=== PATIENT | female | born 1950 | race Caucasian/White ===

== ENCOUNTER 2017-01-08 09:27 | Day surgery (SDC) | payer MEDICARE, OTHER ==
[~2017-01-08] VITALS: Ht 166.4 cm; Wt 74.9 kg
[2017-01-08] VITALS (46 sets, daily range): BP systolic 86–149; BP diastolic 48–81; PULSE 43–70; RESP 10–18; TEMP 96.2–98.1; O2SAT 87–100; Ht 166.4 cm; Wt 74.9 kg
[~2017-01-08 09:27] MED LIST: ATOR10TA64 PO; CEFAZOLIN 1 GRAM INJECTION IV ONE; LIDOCAINE 1% (10mg/ml) 2ml SDV INJ ONE; LR 1,000 ML IV PRN; LR 1,000 ML IV SCH; RANI150T7 PO
--- OUTSIDE RECORDS SUMMARY | 2017-01-08 09:32 | XMS REPORT ---
Author Author [facility]. Organization [facility] Address [address] [place] [address] Phone [phone] Summary purpose CCDA Sent to [facility] Chief Complaint and Reason for Visit No authorized Reason for Visit (Admitting Diagnosis) is available for this visit. Problem list No authorized problems tracked for continuity of care are available for this visit. Encounters No authorized problems tracked for encounter diagnoses are available for this visit. Medications No medications recorded for this patient visit Allergies, adverse reactions, alerts No allergy information is available for this patient. Immunizations No immunizations recorded for this patient visit Relevant diagnostic tests and/or laboratory data No authorized results are available for this patient visit History of procedures Procedure Code Code Type Description Date Performed Performing Physician 49283 CPT-4 MARCELA, DNA, DIR PROBE 11-01-2015 BROWN ESCAMILLA 41007 CPT-4 LENNON VAG, DNA, DIR PROBE 11-01-2015 BROWN ESCAMILLA 64493 CPT-4 TRICHOMONAS VAGIN, DIR PROBE 11-01-2015 BROWN ESCAMILLA Functional status No functional or cognitive status observations are available for this visit. Vital signs No authorized vital signs are available for this visit. Social history No Social History or smoking status observations were recorded for this visit. ( Unknown if ever smoked.) Treatment Plan No treatment plan text is available for this visit. Hospital discharge instructions No discharge instruction text is available for this visit.
--- OUTSIDE RECORDS SUMMARY | 2017-01-08 09:32 | XMS REPORT | Continuity of Care Document ---
Author Author [facility]. Organization [facility] Address Unknown Phone Unavailable Allergies Medications Problems Date Dx Coded Attending Type Code Diagnosis Diagnosed By 10/14/2013 BROWN ESCAMILLA MD 272.4 HYPERLIPIDEMIA NEC/NOS 10/14/2013 BROWN ESCAMILLA MD 401.1 BENIGN HYPERTENSION 10/14/2013 BROWN ESCAMILLA MD 788.1 DYSURIA 10/14/2013 BROWN ESCAMILLA MD 795.01 PAP SMEAR W ASC-US 01/02/2014 BROWN ESCAMILLA MD 455.6 HEMORRHOIDS NOS 01/02/2014 BROWN ESCAMILLA MD 562.10 DIVERTICULO COLON NO HEM 01/02/2014 BROWN ESCAMILLA MD V12.72 PERSONAL HISTORY POLYPS 01/02/2014 BROWN ESCAMILLA MD V76.51 SCREENING MAL MARSHA COLON 03/06/2014 RODRIGUE BENTON 616.10 VAGINITIS NOS 03/24/2014 ORDRIGUE BENTON 785.1 PALPITATIONS 11/01/2015 BROWN ESCAMILLA MD D50.9 Iron deficiency anemia, unspecified 11/01/2015 BROWN ESCAMILLA MD L30.9 Dermatitis, unspecified Procedures Code Description [place] [address] COMPREHEN METABOLIC PANEL BROWN ESCAMILLA MD 10/14/2013 45089 ASSAY THYROID STIM HORMONE BROWN ESCAMILLA MD 10/14/2013 79205 COMPLETE CBC, AUTOMATED BROWN ESCAMILLA MD 10/14/2013 04217 DIAGNOSTIC COLONOSCOPY BROWN ESCAMILLA MD 01/02/2014 J3010 FENTANYL CITRATE INJECITON BROWN ESCAMILLA MD 01/02/2014 58488 MENA, DNA, DIR PROBE ZOILA SHEIKH, RODRIGUE 03/06/2014 99718 LENNON VAG, DNA, DIR PROBE ZOILA SHEIKH, RODRIGUE 03/06/2014 77341 TRICHOMONAS VAGIN, DIR PROBE ZOILA DUMONT KORI, [facility] 03/06/2014 40371 METABOLIC PANEL TOTAL CA ZOILA DUMONT KORI, [facility] 03/24/2014 26589 ASSAY THYROID STIM HORMONE ZOILA DUMONT KORI, [facility] 03/24/2014 33179 COMPLETE CBC, AUTOMATED ZOILA DUMONT KORI, [facility] 03/24/2014 06916 MENA, DNA, DIR PROBE ANDI VALLES, BROWN R 11/01/2015 54115 LENNON VAG, DNA, DIR PROBE ANDI VALLES, BROWN R 11/01/2015 44381 TRICHOMONAS VAGIN, DIR PROBE ANDI VALLES , BROWN R 11/01/2015 Results Test Result Range Comprehensive Metabolic Panel - 10/14/13 11:30 Sodium 138 MMOLL 134-145 Potassium 4.6 MMOLL 3.6-5.0 Chloride 101 MMOLL 98-107 CO2 29 MMOLL 22-30 Glucose 95 MG/DL 75-110 BUN 18 MG/DL 9-20 Creatinine .8 MG/DL 0.8-1.7 Calcium 10.1 MG/DL 8.4-10.2 T Bili .4 MG/DL 0.2-1.3 T. Protein 7.3 G/DL 6.3-8.2 A/G Ratio 1.4 RATIO Albumin 4.2 G/DL 3.5-5.0 Alk Phos 84 U/L 38-126 ALT 30 U/L 11-66 AST 23 U/L 14-36 TSH - 10/14/13 11:30 TSH 1.91 UIUML 0.50-6.00 CBC - 10/14/13 11:30 Eos # 0.27 x10^3 0-0.5 Eos % 4.4 % 0-4 HCT 44.1 % 37.0-47.0 HGB 14.2 G/DL 12.0-16.0 Lymph # 1.47 x10^3 1.0-4.0 Lymph % 23.7 % 20-50 MCH 30.1 PG 27.0-31.0 MCHC 32.2 G/DL 32.0-36.0 MCV 93.4 FL 81-99 Dawes # 0.43 x10^3 0.0-0.8 Dawes % 6.9 % 1.0-9.0 MPV 10.4 FL 6.0-10.0 Platelet 269 x10^3 150-400 RBC 4.72 x10^3 4.20-5.40 RDW 12.7 % 12-15 WBC 6.19 x10^3 4.8-10.8 Baso # 0.02 x10^3 0-0.2 Baso % 0.3 % 0-2 Neut % 64.7 % 50-70 Neut # 4.00 x10^3 3.0-7.0 AFFIRM Vaginitis Panel - 03/06/14 12:00 Gardnerella NEG Negative Trichomonas NEG Negative Mena NEG Negative Basic Metabolic Panel - 03/24/14 11:00 Sodium 145 MMOLL 134-145 Potassium 4.6 MMOLL 3.6-5.0 Chloride 102 MMOLL 98-107 CO2 30 MMOLL 22-30 Glucose 89 MG/DL 75-110 BUN 16 MG/DL 9-20 Creatinine .9 MG/DL 0.8-1.7 Calcium 9.7 MG/DL 8.4-10.2 TSH - 03/24/14 11:00 TSH 1.53 UIUML 0.50-6.00 Free T4 - 03/24/14 11:00 Free T4 1.01 NG/DL 0.75-1.54 CBC - 03/24/14 11:00 Eos # 0.28 x10^3 0-0.5 Eos % 5.2 % 0-4 HCT 42.2 % 37.0-47.0 HGB 13.7 G/DL 12.0-16.0 Lymph # 1.40 x10^3 1.0-4.0 Lymph % 26.2 % 20-50 MCH 30.4 PG 27.0-31.0 MCHC 32.5 G/DL 32.0-36.0 MCV 93.8 FL 81-99 Dawes # 0.41 x10^3 0.0-0.8 Dawes % 7.7 % 1.0-9.0 MPV 10.3 FL 6.0-10.0 Platelet 215 x10^3 150-400 RBC 4.50 x10^3 4.20-5.40 RDW 12.8 % 12-15 WBC 5.35 x10^3 4.8-10.8 Baso # 0.02 x10^3 0-0.2 Baso % 0.4 % 0-2 Neut % 60.5 % 50-70 Neut # 3.24 x10^3 3.0-7.0 AFFIRM Vaginitis Panel - 11/01/15 14:45 Gardnerella NEG Negative Trichomonas NEG Negative Mena NEG Negative Encounters ACCT No. Visit Date/Time Discharge Status Pt. Type Provider Facility Loc./Unit Complaint [id number] 11/01/2015 13:38:00 11/01/2015 13:38:00 DIS Outpatient ANDI VALLES, [facility] [id number] 03/24/2014 13:21:00 03/24/2014 13:21:00 DIS Outpatient ZOILA SHEIKH [facility] [id number] 03/06/2014 13:37:00 03/06/2014 13:37:00 DIS Outpatient ZOILA SHEIKH [facility] [id number] 01/02/2014 08:45:00 01/02/2014 12:30:00 DIS Outpatient ANDI VALLES, [facility] [id number] 10/14/2013 13:47:00 10/14/2013 13:47:00 DIS Outpatient ANDI VALLES, [facility]
--- NOTE | 2017-01-08 10:49 | ANESPREOP ---
Anesthesia Record Date and Time DATE: 01/08/17 TIME: 10:47 Pre-Op Diagnosis Umbilical hernia Proposed Surgical Procedure umbilical hernia repair NPO since: Midnight Allergies: Coded Allergies: No Known Allergies (Unverified , 01/08/17) Ht/Wt/BMI Height: 5 ' 5.50 " Weight: 73.200 kg BMI: 26.5 kg/m2 Vital Signs Date Time Temp Pulse Resp B/P Pulse Ox O2 Delivery O2 Flow Rate FiO2 01/08/17 10:01 98.1 63 12 149/81 95 Room Air Medications Inpatient Medications Current Medications Medications (Trade) Dose Ordered Sig/Germán Start Time Stop Time Status Last Admin Dose Admin Lactated Ringer's 1,000 ml @ 50 mls/hr Q20H 01/08/17 07:00 01/08/17 07:00 DC Lactated Ringer's (Lactated Ringers) 1,000 ml @ 50 mls/hr Q20H PRN 01/08/17 07:00 01/08/17 10:29 50 MLS/HR Atorvastatin Calcium (Atorvastatin Calcium) 10 Mg Tablet, 0.5 TAB PO DAILY, ( Reported) Last Taken: on 01/06/17 Ranitidine HCl (Ranitidine HCl) 150 Mg Tablet, 1 TAB PO DAILY, (Reported) Currently on Beta Christiano: No Medical/Surgical History Anesthesia PMH: Reports: Arthritis, Hyperlipidemia, Reflux (takes meds), Denies : Anesthesia Reactions (no airway issues), Cancer, Clotting Problems, Glaucoma, Sleep Apnea Smoking Status: Never smoker Has pt. smoked today?: No Use Chewing Tobacco?: No Second Hand Exposure: No Substance Use Type: does not use Alcohol Intake: none HX of Last Menstrual Period: around late 40's Past Surgical History Orthopedic Surgeries: Abdominal Surgeries: Genitourinary Surgeries: Cardiac Surgeries: Endocrine Surgeries: Reproductive Surgeries: Yes - tubal ligation Neurological Surgeries: Ear Surgeries: Nose Surgeries: Throat Surgeries: Other Surgeries: Yes - colonoscopy Anesthesia Adverse Reactions: FOUND none Family Hx of Anesthesia Advers: none Hx of Motion Sickness: No Pertinent Findings EKG Rhythm: Sinus Rhythm Physical Exam Respiratory: Lungs clear Cardiovascular: FOUND Regular rate, rhythm Airway Assessment Mallampati Score: II TMD: 3 Fingerbreadths Neck Extension: Good Overall Assessment: No Airway Concerns ASA: 2 Plan Anesthesia Plan: TIVA, LMA, GETA Discussion Discussed risks/options/alternatives of anesthesia and questions answered. Patient consents. Nursing pain assessment noted. Present: Family Member Attestation Statement Prior to the delivery of any anesthetic medication, I examined the patient, developed the plan, obtained the patient's consent and discussed the risk and benefits of the procedure with the patient/guardian. DELBERT CAMARGO BEATER OUT LEVELING MACHINE Jan 08, 2017 10:49
[2017-01-08] MEDS ORDERED: HYDR-4246 PO (11:15)
[2017-01-08] MEDS ORDERED: POLY17PO6 PO (11:15)
[2017-01-08] MEDS ORDERED: IBUP-1724 PO (11:15)
[2017-01-08] MEDS ORDERED: FENTANYL 100mcg/2ml INJECTION ONE (11:59)
[2017-01-08] MEDS ORDERED: MIDAZOLAM 2mg/2ml INJECTION ONE (11:59)
[2017-01-08] MEDS ORDERED: PROPOFOL 500mg 100 ML IV ONE (12:01)
[2017-01-08] MEDS ORDERED: BUPIVACAINE 0.25%/EPI 1:200,000 30ml SDV ONE (12:03)
[2017-01-08] MEDS ORDERED: KETOROLAC 30mg/ml INJECTION ONE (13:01)
[2017-01-08] MEDS ORDERED: ONDANSETRON 4mg/2ml INJECTION ONE (13:01)
[2017-01-08] MEDS ORDERED: HYDROMORPHONE 2mg/ml INJECTION IV PRN (13:45)
--- NOTE | 2017-01-08 14:32 | ANESPO ---
Post-Op Note Date 01/08/17 Time: 14:30 Status Pt Participated in Evaluation: Pt participated in person Vital Signs Date Time Temp Pulse Resp B/P Pulse Ox O2 Delivery O2 Flow Rate FiO2 01/08/17 14:25 56 14 124/58 100 Nasal Cannula 2.00 01/08/17 14:10 97.0 Respiratory Function: Airway patent Cardiovascular Function: Regular pulse Mental Status: Alert/oriented Pain Level Intensity: 4 Hydration: IV infusing Complications during Recovery None apparent Post-Anesthesia Notes Dr Maldonado and Sherif aware of arrythmias intraoperatively. Pt currently in sinus michelle and VSS without SVT or 2nd degree block Follow-Up Instructions Instructions Per Surgeon JORDIN FRANZ CRNA Jan 08, 2017 14:32
[2017-01-08] MEDS: HYDROCODONE/APAP 5 mg/325 mg TABLET PO PRN (14:53)
--- NOTE | 2017-01-08 14:59 | NUR ---
Script [place] script given to pts . verbalized he would fill at [facility] in [place] since they lived out of town. He will be back for pts transport home.
--- NOTE | 2017-01-08 16:43 | NUR ---
Notification/Status Sherif Robison APRN notified of pts inability to be weaned off of o2. Currently on 2L via nasal canula. Remains bradycardic, drowsy. pain more tolerable at a 5/10 after norco administration, previously pain was 10/10. Pt was dangling on side of bed x3, each time would appear to be tolerating, after a couple minutes would feel like she was going to pass out, pt assisted back to lying position each time. New order received to admit to Surgical Unit over night. Will transfer to surgical floor. Addendum: 01/08/17 at 1701 by SIMEON NAVARRO RN previous discharge cancelled
--- NOTE | 2017-01-08 17:10 | NUR ---
ADMIT PT ADMITTED TO ROOM 132 AT THIS TIME VIA CART. PT TRANSFERRED SELF FROM CART TO BED. VITAL SIGNS STABLE ON 2L OF O2 VIA NC. PT'S MICK PRESENT UPON TRANSFER. SIDE RAILS UP X2, BED ALARM ON. CALL LIGHT IN REACH. WILL CONTINUE TO MONITOR.
[2017-01-08] MEDS ORDERED: POLYETHYL.GLYCOL 3350 PACKET 17gm PO PRN (20:00)
[2017-01-08] MEDS: IBUPROFEN 200 MG TABLET PO PRN (21:08)
[2017-01-08] MEDS: POLYETHYL.GLYCOL 3350 PACKET 17gm PO PRN (21:12)
[2017-01-08] MEDS ORDERED: RANITIDINE 150 MG TABLET PO SCH (22:00)
[2017-01-08] MEDS ORDERED: ATORVASTATIN 10 MG TABLET PO SCH (22:00)
--- NOTE | 2017-01-08 22:49 | NUR ---
STATUS PT GIVEN 600MG PO MOTRIN FOR MILD PAIN IN ABD FROM SURGERY. NOW PT DENIES ANY PAIN. DOING WELL GETTING IN AND OUT OF BED TO VOID. DENIES TROUBLE VOIDING. HAS BEEN WEANED TO ROOM AIR SINCE 2014. IN ROOM, STAYING THE NIGHT WELL. PT ANTICIPATES BEING OKAYED TO GO HOME IN A.M. NO CALLS FROM PATCH DRILLER TECH. HR IS IN 50'S WHEN I HAVE OBSERVED HER TELE.
[2017-01-09 00:12] VITALS: PULSE 59
--- NOTE | 2017-01-09 02:08 | NUR ---
BRADYCARDIA HR SUSTAINED AROUND 47BPM FOR APPROX 10MINS, RN AT BEDSIDE, UPON AWAKENING PT'S HR IMMEDIATELY RESOLVED TO 63BPM, DENIES ANY OTHER SX. PT DID VERBALIZE TO RN THAT SHE HAS HAD SOME HX WITH BRADYCARDIA PRIOR TO THIS VISIT. RESTING IN BED, WILL CONTINUE TO MONITOR.
[2017-01-09] MEDS: IBUPROFEN 200 MG TABLET PO PRN (03:54)
--- NOTE | 2017-01-09 03:56 | NUR ---
MOTRIN 600MG GIVEN AT THIS TIME AFTER PT UP TO BR, PT RATES PAIN AT 8/10 WITH ACTIVITY.
[2017-01-09 05:15] VITALS: BP 102/60; PULSE 55; RESP 20; TEMP 96.9; O2SAT 95
[2017-01-09 07:53] VITALS: BP 110/66; PULSE 62; RESP 16; TEMP 97.7; O2SAT 96
[2017-01-09] MEDS: POLYETHYL.GLYCOL 3350 PACKET 17gm PO PRN (08:02)
[2017-01-09] MEDS: HYDROCODONE/APAP 5 mg/325 mg TABLET PO PRN (08:03)
--- NOTE | 2017-01-09 08:25 | PNSURG ---
Subjective DATE: 01/09/17 TIME: 08:09 Interval History She was dizzy upon arising and required supplemental oxygen after a couple hours in recovery, and during surgery she had intermittent short episodes of dropped beats. She was therefore transferred to the surgical floor for night. She has been weened of oxygen. During the nite it was noted on telemetry that HR dropped to the upper 40's while sleeping. She had only Ibuprofen for pain during the night. She notes umbilical pain only with activity this morning. Denies chest pain, SOA, palpitations, dizziness this morning. Objective Vital Signs Date Time Temp Pulse Resp B/P Pulse Ox O2 Delivery O2 Flow Rate FiO2 01/09/17 07:53 97.7 62 16 110/66 96 Room Air 01/08/17 19:15 1.00 Height (Feet): 5 Height (Inches): 5.50 Weight (Kilograms): 74.900 BMI 26.5 General Appearance: Alert, Orientated x 3 Respiratory: FOUND: clear bilaterally Cardiac: FOUND: regular rate (this morning), regular rhythm Incision: FOUND: Clean, Dry, Intact, open to air, other (ecchymostic), NOT FOUND: erythema GS Assessment & Plan Problems: (1) Umbilical hernia Status: Resolved Qualifiers: Obstruction and gangrene presence: without obstruction or gangrene Qualified Codes: K42.9 - Umbilical hernia without obstruction or gangrene (2) Mobitz type I incomplete atrioventricular block Status: Resolved (3) Postural dizziness Status: Resolved (4) Sleep related hypoxia Status: Chronic Assessment Doing well this am, off oxygen, denies dizziness. Bradycardic during the night, NSR when awake. DC to home today. Appointment for January [address] Martínez for cardiac check. Routine post op appointment in 2 weeks with or Erica. DVT Prophylaxis: SCD'S Code Status Full Code Hospital Course Summary Disclaimer The visit summary below is not to be considered part of the above Progress Note. LETTY CASTILLO APRN, CWS Jan 09, 2017 08:16
--- NOTE | 2017-01-09 08:30 | NUR ---
CM CM IN TO VISIT PATIENT, SHE IS A&O. IS AT THE BEDSIDE. PATIENT PLANS TO DISCHARGE HOME, DENIES ANY DISCHARGE NEEDS. CM CONTACT INFORMATION PROVIDED. MOUNIKA ESCOBAR. Addendum: 01/09/17 at 0831 by JULIANA CAMERON RN Amended: Links added.
--- NOTE | 2017-01-09 08:32 | NUR ---
CM LACE SCORE IS 1, NO FURTHER FOLLOW UP IS INDICATED.
--- NOTE | 2017-01-09 08:37 | OPNOTEF ---
DATE OF SERVICE 01/08/2017 SURGEON Vj Maldonado MD PREOPERATIVE DIAGNOSIS Symptomatic umbilical hernia. POSTOPERATIVE DIAGNOSIS Symptomatic umbilical hernia. PROCEDURE Umbilical herniorrhaphy with incorporation of mesh. ANESTHESIA TIVA/local BRIEF HISTORY/INDICATIONS Mrs. Swann is a 66-year-old female who recently presented to my office as a result of her history for some periumbilical discomfort in conjunction with physical finding of an umbilical hernia. Patient presents today to undergo an elective umbilical herniorrhaphy. For completeness please refer to notes included in the patient's chart. DESCRIPTION OF PROCEDURE After informed consent was obtained, patient was brought to the endoscopy suite, placed on the table in a supine fashion. Periumbilical region was then prepped in sterile fashion. Formal time-out was then completed. 0.25% Marcaine with epinephrine was injected circumferentially around the level of the umbilicus. Next a 3 cm curved infraumbilical incision was then made through the area of analgesia. Dissection was then carried down to the deep subcuticular tissues and underlying fascia. The patient was found to have an umbilical hernia coming through a fascial defect that was on the order of about 2 cm in diameter. Edges of the fascial defect were dissected out circumferentially. The base of the umbilicus was dissected off of the hernia sac. Next, the hernia sac was then returned back through the fascial defect and a preperitoneal dissection was performed circumferentially around the fascial defect. Next, a 6-cm piece of Ventralex mesh was brought forth onto the operative field and placed into this preperitoneal plane. The mesh was fixated at the 12 o'clock, 3 o'clock, 6 o'clock and 9 o'clock position. This was accomplished by taking an 0 Prolene suture and passing it through the fascia and subsequently obtaining a small purchase of the underlying mesh and then subsequently advancing the Prolene suture back up to and through the overlying fascia. This resulted in four single interrupted sutures placed at each quadrant, resulting in fixation of the mesh in the preperitoneal location. Next, attention was then directed towards the fascial defect itself. Fascial defect itself was closed by placing multiple single interrupted sutures of 0 Prolene suture. These Prolene sutures were also placed in such a fashion so as to incorporate the mesh in its preperitoneal location. Each suture was then tied sequentially resulting in nice imbrication of the mesh with further fixation of the mesh in its preperitoneal location. Attention was directed towards closure. A small subcuticular purchase of the base of the umbilicus was obtained followed by a small purchase of underlying fascia. This resulted in imbrication of the base of the umbilicus to the underlying fascia. The subcutaneous tissue was then closed in a running fashion with 3-0 Vicryl. Skin itself was then closed in a running subcuticular fashion with 4-0 Monocryl. The patient tolerated the procedure without difficulties and is in the process of awakening from her anesthetic. The nurse supervisor photoengraving did inform me that the patient did have some arrhythmias noted during her procedure. He felt this perhaps was consistent with that of a Mobitz type 2 intermittent heart block. The patient may benefit on outpatient basis by undergoing a Holter monitor for further evaluation of this reported intermittent arrhythmia. PETEY
--- NOTE | 2017-01-09 09:48 | NUR ---
status/ DC Pt A/O x3, V/S stable on RA. Pt ambulating well with help to bathroom, has some pain with position change. Pt rating pain at 7/10 at worse, PRN norco given with breakfast and pt stated it helped. Pt eating well, no N/V noted. After Dianne Robison in to see, pt dressed and belongings gathered. IV site taken out, cath tip intact. Telem DC. DC instructions given to pt and , no new questions at this time, scripts picked up yesterday. Pt taken to ER door at 0905 via WC.
== END 2017-01-09 09:05 | disposition home or self-care (01) ==
LOC: SCU 09:27 → SRG 09:29 → SCU 01-09 09:05
PROVIDERS: ATTEND Surgery
DX: K42.9 Umbilical hernia without obstruction or gangrene (principal); I44.1 Atrioventricular block, second degree; K21.9 Gastro-esophageal reflux disease without esophagitis; R42 Dizziness and giddiness; G47.34 Idiopathic sleep related nonobstructive alveolar hypoventilation; Z79.82 Long term (current) use of aspirin; Z79.899 Other long term (current) drug therapy
CPT/HCPCS: 49585; 93005; A9270; J0690; J1170; J1885; J2250; J2405; J3010; J7120